=== PATIENT | female | born 1960 | race Caucasian/White ===

== ENCOUNTER 2023-10-17 17:42 | Emergency (ER) | payer OTHER ==
[2023-10-17 18:10] VITALS: BP 121/67; PULSE 101; RESP 18; TEMP 98.3; BMI 26.6
[2023-10-17] MEDS ORDERED: METOCLOPRAMIDE HCL INJECTION 10 MG/2 ML VIAL IVPUSH ONE (19:37)
[2023-10-17] MEDS ORDERED: KETOROLAC TROMETHAMINE 15 MG/ML VIAL IVPUSH ONE (19:37)
[2023-10-17] MEDS ORDERED: METOCLOPRAMIDE HCL INJECTION 10 MG/2 ML VIAL ONE (19:43)
[2023-10-17] MEDS ORDERED: KETOROLAC TROMETHAMINE 15 MG/ML VIAL ONE (19:43)
[2023-10-17 19:53] LABS: BASO % 0.5 % (0-2.0); EOS % 0.5 % (0-4.5); HEMATOCRIT 42.2 % (32.4-45.2); HEMOGLOBIN 13.9 GM/dL (10.7-15.3); LYMPH % 7.7 % (8-40); MCH 29.4 pg (25.7-33.7); MCHC 33.1 g/dl (32.0-36.0); MEAN CELL VOLUME 88.8 fl (80-96); MEAN PLT VOLUME 8.5 fl (7.5-11.1); MONO % 6.6 % (3.8-10.2); NEUT % 84.7 % (42.8-82.8); PLATELET COUNT 245 10^3/uL (134-434); RBC 4.75 M/mm3 (3.60-5.2); RDW 13.2 % (11.6-15.6); WHITE BLOOD COUNT 10.9 K/mm3 (4.0-10.0)
[2023-10-17 20:03] LABS: EPI CELLS 17 /uL (0-25.1); HYALINE CASTS 0 /uL (0-3.1); PH,URINE 5.5 (5.0-8.0); URINE APPEARANCE CLEAR; URINE BACTERIA 8 /uL (0-1359); URINE BILIRUBIN NEGATIVE (NEGATIVE); URINE COLOR YELLOW; URINE GLUCOSE (UA) NEGATIVE (NEGATIVE); URINE KETONE 1+ (NEGATIVE); URINE LEUK ESTERASE NEGATIVE (NEGATIVE); URINE NITRITE NEGATIVE (NEGATIVE); URINE PROTEIN TRACE (NEGATIVE); URINE RBC 48 /uL (0-23.9); URINE UROBILINOGEN 0.2 mg/dL (0.2-1.0); URINE WBC 32 /uL (0-25.8)
[2023-10-17 20:12] LABS: POTASSIUM 3.9 mmol/L (3.5-5.1)
[2023-10-17 20:14] LABS: BLOOD UREA NITROGEN 18.2 mg/dL (7-18); CALCIUM 9.1 mg/dL (8.5-10.1)
[2023-10-17 20:15] LABS: ALBUMIN 3.7 g/dl (3.4-5.0)
[2023-10-17 20:18] LABS: CREATININE 1.3 mg/dL (0.55-1.3)
[2023-10-17 20:19] LABS: TOT PROT 7.2 g/dl (6.4-8.2)
[2023-10-18] MEDS ORDERED: CEPHALEXIN MONOHYDRATE 500 MG CAPSULE (UD) PO STA (02:28)
[2023-10-18] MEDS ORDERED: CEPHALEXIN MONOHYDRATE 500 MG CAPSULE (UD) ONE (02:43)
== END 2023-10-18 02:53 | disposition home or self-care (01) ==
LOC: JER 17:42
PROC: 3E0333Z Introduction of Anti-inflammatory into Peripheral Vein, Percutaneous Approach (ICD-10-PCS; principal; 2023-10-17)
PROC: 3E033GC Introduction of Other Therapeutic Substance into Peripheral Vein, Percutaneous Approach (ICD-10-PCS; 2023-10-17)
DX: R10.30 Lower abdominal pain, unspecified (principal); R19.7 Diarrhea, unspecified; N39.0 Urinary tract infection, site not specified; N13.30 Unspecified hydronephrosis
CPT/HCPCS: 36415; 74019-TC-FY; 74176-TC; 80053; 81003; 85025; 87086; 99285-25

== ENCOUNTER 2024-07-11 04:09 | Day surgery (SDC) | payer OTHER ==
[2024-07-06 16:59] VITALS: BMI 23.1
[2024-07-11] MEDS ORDERED: DEXAMETHASONE SOD PHOSPHATE 4 MG/1 ML VIAL ONE (12:29)
[2024-07-11] MEDS ORDERED: PROPOFOL 20 ML ONE (12:29)
[2024-07-11] MEDS ORDERED: ONDANSETRON 4 MG/2 ML VIAL ONE (12:29)
[2024-07-11] MEDS ORDERED: MIDAZOLAM HCL 2 MG/2 ML SINGLE DOSE VIAL ONE (12:30)
[2024-07-11] MEDS ORDERED: oxyCODONE HCL 5 MG TABLET PO PRN (12:33)
[2024-07-11] MEDS ORDERED: ONDANSETRON 4 MG/2 ML VIAL IVPUSH PRN (12:33)
[2024-07-11] MEDS: ceFAZolin SODIUM 1 GM VIAL IVPB ONE (12:37)
[2024-07-11] MEDS ORDERED: ceFAZolin SODIUM 1 GM VIAL ONE ×2 (12:56)
[2024-07-11] MEDS: LACTATED RINGERS SOLUTION 1,000 ML IV SCH (14:51)
[2024-07-11 15:01] VITALS: RESP 18
[2024-07-11 15:20] VITALS: TEMP 97
[2024-07-11 16:33] VITALS: BP 121/67; PULSE 84
== END 2024-07-11 16:10 | disposition home or self-care (01) ==
LOC: JASU-SURG 04:09
PROVIDERS: ATTEND Urology
PROC: 0T778DZ Dilation of Left Ureter with Intraluminal Device, Via Natural or Artificial Opening Endoscopic (ICD-10-PCS; 2024-07-11)
PROC: BT1FZZZ Fluoroscopy of Left Kidney, Ureter and Bladder (ICD-10-PCS; principal; 2024-07-11 11:30)
PROC: 0TC48ZZ Extirpation of Matter from Left Kidney Pelvis, Via Natural or Artificial Opening Endoscopic (ICD-10-PCS; 2024-07-11 11:30)
DX: N13.0 Hydronephrosis with ureteropelvic junction obstruction (principal); N23 Unspecified renal colic; N39.0 Urinary tract infection, site not specified; M81.0 Age-related osteoporosis without current pathological fracture
CPT/HCPCS: 94760; C1758

== ENCOUNTER 2025-01-17 06:37 | Day surgery (SDC) | payer OTHER ==
[2025-01-14 17:37] VITALS: BMI 23.1
[2025-01-17] MEDS ORDERED: MIDAZOLAM HCL 2 MG/2 ML SINGLE DOSE VIAL ONE (09:11)
[2025-01-17] MEDS ORDERED: ceFAZolin SODIUM 1 GM VIAL ONE (09:12)
[2025-01-17] MEDS ORDERED: ONDANSETRON 4 MG/2 ML VIAL ONE (09:12)
[2025-01-17] MEDS: ceFAZolin SODIUM 1 GM VIAL IVPB ONE (09:15)
[2025-01-17] MEDS ORDERED: KETOROLAC TROMETHAMINE 30 MG/1 ML VIAL ONE (09:23)
[2025-01-17 10:16] VITALS: RESP 18
[2025-01-17 10:52] VITALS: BP 96/58; PULSE 62; TEMP 97.3
== END 2025-01-17 12:30 | disposition home or self-care (01) ==
LOC: JASU-SURG 06:37
PROVIDERS: ATTEND Urology
PROC: 0TF7XZZ Fragmentation in Left Ureter, External Approach (ICD-10-PCS; principal; 2025-01-17 09:00)
DX: N20.1 Calculus of ureter (principal)

== ENCOUNTER 2025-02-28 06:08 | Day surgery (SDC) | payer OTHER ==
[2025-02-26 13:19] VITALS: BMI 23.1
[2025-02-28] MEDS ORDERED: DEXTROSE 5%-0.45% SALINE 1,000 ML IV SCH (08:30)
[2025-02-28] MEDS ORDERED: PROPOFOL 20 ML ONE (08:31)
[2025-02-28] MEDS ORDERED: SUCCINYLCHOLINE CHLORIDE 200 MG/10 ML SYRINGE ONE (08:31)
[2025-02-28] MEDS: ceFAZolin SODIUM 1 GM VIAL IVPB ONE (08:35)
[2025-02-28 09:13] VITALS: RESP 16
[2025-02-28 12:14] VITALS: BP 111/73; PULSE 71; TEMP 97.5
== END 2025-02-28 11:56 | disposition home or self-care (01) ==
LOC: JASU-SURG 06:08
PROVIDERS: ATTEND Urology
PROC: 0TF3XZZ Fragmentation in Right Kidney Pelvis, External Approach (ICD-10-PCS; principal; 2025-02-28 08:30)
DX: N20.0 Calculus of kidney (principal)